=== PATIENT | male | born 1965 | race Caucasian/White ===

== ENCOUNTER 2024-01-21 10:39 | Outpatient (CLI) | payer BC, SELFPAY ==
--- NOTE | ~2024-01-21 | XR_ITS ---
EXAMINATION: XR wrist LT 2V DATE: 01/21/2024 10:59 INDICATION: Posterolateral left wrist pain post fall 4 days prior TECHNIQUE: Posteroanterior, ulnar deviation, oblique, and lateral views of the left wrist were obtain ed. 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 Old healed distal left radial fracture with volar plate and screw fixation. The fracture is he aled in essentially anatomic alignment. There is an additional corticated ossicle at the dorsal aspec t of the left wrist which could represent either additional chronic nonunited fracture fragment or he terotopic ossification related to chronic soft tissue injury. 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 Mild polyar ticular osteoarthritis at the distal radioulnar, radiocarpal, triscaphe, first carpal metacarpal join ts and third metacarpophalangeal joints IMPRESSION: 1. 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 2. 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 3. 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 Reviewed, dictated and finalized at location B. IMPRESSION: 1. Chronic posttraumatic changes including chronic nonunited fractures at the r adial ulnar styloid processes with additional healed radial fracture with volar plate and screw fixation as detailed above. 2. 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 3. 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
== END 2024-01-21 10:40 | disposition home or self-care (01) ==
LOC: ANHIMG 10:40
PROVIDERS: PCP Family Medicine; Visit Provider Physician Assistant Medical
DX: M19.032 Primary osteoarthritis, left wrist (principal); M19.042 Primary osteoarthritis, left hand
CPT/HCPCS: 73100